=== PATIENT | male | born 1960 | race Caucasian/White ===

== ENCOUNTER 2020-10-25 20:34 | Emergency (ER) | payer BC ==
[~2020-10-25] VITALS: Ht 180.2 cm; Wt 111.5 kg
[2020-10-25 20:53] VITALS: BP 152/78
[2020-10-25] MEDS ORDERED: FAMO-119 PO (21:29)
[2020-10-25] MEDS ORDERED: ONDA4TAB11 PO (21:29)
--- NOTE | 2020-10-25 21:30 | ED General ---
General Chief Complaint: General Problems/Pain Stated Complaint: COVID+,WEAKNESS Nursing Triage Note: PT IN PER POV WITH C/O WEAKNESS, NOT EATING, SOME BOUTS OF DIARRHEA, REPORTS SWEATING. History of Present Illness Date Seen by Provider: Oct 25, 2020 Time Seen by Provider: 21:00 Initial Comments 60-year-old male presents with complaint of fatigue, weakness and body aches. Tested positive for Covid on 15 October and has had symptoms whole time including: Cough, stomach upset and nausea without vomiting, some loose stool primarily weakness and body aches. Patient is been taking ibuprofen and Tylenol as well as some [id number] vitamins. He thought he might be feeling better by now but he is not. Denies chest pain or shortness of air or progressive cough. Allergies and Home Medications Home Medications Famotidine 20 Mg Tablet, 20 MG PO BID Prescribed by: JO VAUGHAN on 10/25/202128 Ondansetron 4 Mg Tab.rapdis, 4 MG PO TID Prescribed by: JO VAUGHAN on 10/25/202128 Patient Home Medication List Home Medication List Reviewed: Yes Review of Systems Review of Systems Constitutional: No chills, No dizziness, No fever; malaise EENTM: No ear discharge, No ear pain, No eye pain, No throat pain, No throat swelling Respiratory: cough, short of breath; No wheezing Cardiovascular: No chest pain, No edema, No palpitations, No syncope Gastrointestinal: No abdominal pain, No constipation; diarrhea, loss of appetite, nausea; No vomiting Musculoskeletal: No back pain, No joint pain; muscle pain Skin: No change in color, No rash Psychiatric/Neurological: Denies Numbness, Denies Paresthesia; Weakness Past [id number]-Uhwudj-Casyqg Hx Patient Social History Tobacco Use?: No Substance use?: No Alcohol Use?: No Physical Exam Vital Signs Vital Signs - First Documented 10/25/20 20:53 Temp 36.2 Pulse 57 Resp 16 B/P (MAP) 152/78 (102) Pulse Ox 94 O2 Delivery Room Air Capillary Refill : Less Than 3 Seconds Height, Weight, BMI Height: '" Weight: lbs. oz. kg; 34.00 BMI Method: General Appearance: No Apparent Distress, WD/WN Eyes: Bilateral Eye PERRL, Bilateral Eye EOMI HEENT: PERRL/EOMI, TMs Normal, Normal ENT Inspection, Pharynx Normal Neck: Non Tender, Supple Respiratory: Chest Non Tender, Lungs Clear, Normal Breath Sounds, No Accessory Muscle Use, No Respiratory Distress, Other (coarse cough) Cardiovascular: Regular Rate, Rhythm, No Edema, No JVD Gastrointestinal: Non Tender, Soft Extremity: Normal Capillary Refill, Non Tender Neurologic/Psychiatric: Alert, Oriented x3, Normal Mood/Affect Skin: Normal Color, Warm/Dry Progress/Results/Core Measures Suspected Sepsis SIRS Temperature: Pulse: 57 Respiratory Rate: 16 Blood Pressure 152 /78 Mean: 102 Results/Orders Vital Signs/I&O 10/25/20 20:53 Temp 36.2 Pulse 57 Resp 16 B/P (MAP) 152/78 (102) Pulse Ox 94 O2 Delivery Room Air Capillary Refill : Less Than 3 Seconds Blood Pressure Mean: 102 Progress Note : Progress Note Well-appearing with normal vital signs, oxygen saturations 94 to 95% on room air with no dyspnea. Reassurance given, encouraged to continue take his vitamin C, vitamin D and zinc. Discussed dosage amounts and encouraged him take melatonin nightly as well as taking ibuprofen 800 mg 3 times a day, he has been taking less than that and not daily. Encourage follow-up with his PCP if not improving or worse. Prescription for Zofran and Pepcid as he states he "has a nervous stomach" at night and tends to keep him awake. Also encouraged him to take as needed Tums or Maalox to help with symptoms. He agrees and understands Departure Impression Primary Impression: COVID-19 Disposition: 01 HOME, SELF-CARE Condition: Stable Departure-Patient Inst. Decision time for Depature: 21:28 Referrals: TERRY QUIÑONES MD (PCP/Family) Primary Care Physician Patient Instructions: COVID-19 (DC) Add. Discharge Instructions: Follow up with Dr Quiñones in 1 week if not improving, sooner if worse Continue your daily vitamins (D, C and zinc) Start taking Melatonin 10mg at bedtime Take 800mg Ibuprofen 3 times daily as needed All discharge instructions reviewed with patient and/or family. Voiced understanding. Scripts Ondansetron (Ondansetron Odt) 4 Mg Tab.rapdis 4 MG PO TID for Nausea, #15 TAB Prov: JO VAUGHAN DO 10/25/20 Famotidine (Pepcid) 20 Mg Tablet 20 MG PO BID, #30 TAB Prov: JO VAUGHAN DO 10/25/20 JO VAUGHAN DO Oct 25, 2020 21:30
== END 2020-10-25 21:34 | disposition home or self-care (01) ==
LOC: ER FS 20:38
DX: U07.1 COVID-19 (principal)
CPT/HCPCS: 99281